=== PATIENT | male | born 1940 | race Two or more races ===

== ENCOUNTER 2025-07-04 08:32 | Inpatient (IN) | payer MEDICARE, MEDICAID ==
[~2025-07-04] VITALS: Ht 175.3 cm; Wt 80.4 kg
[2025-07-04 08:50] VITALS: PULSE 73; RESP 13; O2SAT 96
--- NOTE | 2025-07-04 09:10 | ED.PDOC ---
History of Present Illness HPI Comments 84 year old male with PMHx Dementia, HTN, HLD, CHF, Epilepsy, presents to the ED via EMS with a chief complaint of back pain onset 3 weeks. Patient states he slipped out of his wheelchair about 3 weeks ago, landing on his back, since then has been experiencing mid back pain. Patient has been taking [place] for pain with no improvement of symptoms. Denies LOC, head injury, numbness/tingling, dizziness, headache, nausea, vomiting, diarrhea, chest pain, shortness of breath. No other symptoms or modifying factors present at this time. Chief Complaint: Back Pain Time Seen by MD: 09:00 Reviewed Notes: Medications, Allergies Allergies: Coded Allergies: NO KNOWN ALLERGIES (Unverified , 07/04/25) Information Source: Patient, Emergency Med Personnel Mode of Arrival: EMS Severity: Moderate Timing: Weeks Duration: Since onset Prehospital treatment: Pain Meds Past Medical History PAST MEDICAL HISTORY: CHF, Dementia, High Lipids, HTN, Seizures Surgical History: Denies all surgeries Family History Family History: Reviewed,noncontributory to illness, No family hx of Cancer, No family hx of DM, No family hx of Heart franki, No family hx of HTN, No family hx ofKidney franki, No family hx of Liver franki, No family hx of Lung franki, No family hx of Stroke Social History Smoker: Non-Smoker Alcohol: Denies ETOH Use Drugs: Denies Drug Use Lives In: Assisted Care Constitutional: denies: chills, diaphoresis, fatigue, fever, malaise, sweats, weakness, others EENTM: denies: blurred vision, double vision, ear bleeding, ear discharge, ear drainage, ear pain, ear ringing, eye pain, eye redness, hearing loss, mouth pain, mouth swelling, nasal discharge, nose bleeding, nose congestion, nose pain, photophobia, tearing, throat pain, throat swelling, voice changes, others Respiratory: denies: cough, hemoptysis, orthopnea, SOB at rest, shortness of breath, SOB with excertion, stridor, wheezing, others Cardiovascular: denies: chest pain, dizzy spells, diaphoresis, Dyspnea on exertion, edema, irregular heart beat, left arm pain, lightheadedness, palpitations, PND, syncope, others Gastrointestinal: denies: abdomen distended, abdominal pain, blood streaked bowels, constipated, diarrhea, dysphagia, difficulty swallowing, hematemesis, melena, nausea, poor appetite, poor fluid intake, rectal bleeding, rectal pain, vomiting, others Genitourinary: denies: burning, dysuria, flank pain, frequency, hematuria, incontinence, penile discharge, penile sore, pain, testicle pain, testicle swelling, urgency, others Neurological: denies: dizziness, fainting, headache, left sided numbness, left sided weakness, numbness, paresthesia, pre-existing deficit, right sided numbness, right sided weakness, seizure, speech problems, tingling, tremors, weakness, others Musculoskeletal: reports: back pain; denies: gout, joint pain, joint swelling, muscle pain, muscle stiffness, neck pain, others Integumetry: denies: bruises, change in color, change in hair/nails, dryness, laceration, lesions, lumps, rash, wounds, others Allergic/Immunocompromised: denies: Difficulty Healing, Frequent Infections, Hives, Itching, others Hematologic/Lymphatic: denies: anemia, blood clots, easy bleeding, easy bruising, swollen glands, others Endocrine: denies: excessive hunger, excessive sweating, excessive thirst, excessive urination, flushing, intolerance to cold, intolerance to heat, unexplained weight gain, unexplained weight loss, others Psychiatric: denies: anxiety, bipolar disorder, depression, hopeless, panic disorder, schizophrenia, sleepless, suicidal, others All Other Systems: Reviewed and Negative Physical Exam General Appearance: Normal HEENT: Normal ENT Inspection, Pharynx Normal, TMs Normal Neck: Full Range of Motion, Non-Tender, Normal, Normal Inspection Respiratory: Chest Non-Tender, Lungs Clear, No Accessory Muscle Use, No Re spiratory Distress, Normal Breath Sounds Cardiovascular: No Edema, No JVD, No Murmur, No Gallop, Normal Peripheral Pulses, Regular Rate/Rhythm Breast Exam: Deferred Gastrointestinal: No Organomegaly, Non Tender, No Pulsatile Mass, Normal Bowel Sounds, Soft Genitalia: Deferred Pelvic: Deferred Rectal: Deferred Extremities: No calf tenderness, Normal capillary refill, Normal inspection, Normal range of motion, Non-tender, No pedal edema Musculoskeletal : Apperance: Normal Neurologic: Alert, iron cutter II-XII nml as Tested, No Motor Deficits, Normal Affect, Normal Mood, No Sensory Deficits Cerebellar Function: Normal Reflexes: Normal Skin: Dry, Normal Color, Warm Lymphatic: No Adenopathy Was a procedure done? Was a procedure done?: No Differential Dx Considerations may include: Lumbar strain, lumbar or thoracic fracture X-Ray, Labs, Meds, VS Vital Signs Date Time Temp Pulse Resp B/P (MAP) Pulse Ox O2 Delivery O2 Flow Rate FiO2 07/04/25 10:52 78 14 93/42 07/04/25 10:00 98.7 76 10 93/42 (59) 94 98.7 07/04/25 09:15 76 10 93/42 07/04/25 08:50 73 13 96 Nasal Cannula* 2 28 07/04/25 08:50 98.7 73 13 104/40 (61) 96 98.7 07/04/25 08:35 97.8 76 19 123/67 97 97.8 Lab Test 07/04/25 09:20 Range/Units White Blood Count 5.7 4.4-10.8 10^3/uL Red Blood Count 3.93 L 4.5-5.90 10^6/uL Hemoglobin 12.6 L 13.5-17.5 g/dL Hematocrit 38.1 L 41.0-53.0 % Mean Corpuscular Volume 97.1 80.0-100.0 fL Mean Corpuscular Hemoglobin 32.0 28.0-32.0 pg Mean Corpuscular Hemoglobin Concent 33.0 32.0-36.0 g/dL Red Cell Distribution Width 14.8 H 11.8-14.3 % Platelet Count 161 140-450 10^3/uL Mean Platelet Volume 7.0 6.9-10.8 fL Neutrophils (%) (Auto) 76.4 37.0-80.0 % Lymphocytes (%) (Auto) 13.6 10.0-50.0 % Monocytes (%) (Auto) 8.1 0.0-12.0 % Eosinophils (%) (Auto) 1.4 0.0-7.0 % Basophils (%) (Auto) 0.5 0.0-2.0 % Neutrophils # (Auto) 4.4 1.6-8.6 10 ^3/uL Lymphocytes # (Auto) 0.8 0.4-5.4 10 ^3/uL Monocytes # (Auto) 0.5 0-1.3 10 ^3/uL Eosinophils # (Auto) 0.1 0-0.8 10 ^3/uL Basophils # (Auto) 0 0-0.2 10 ^3/uL Nucleated Red Blood Cells 0.0 % Sodium Level 142 136-145 mmol/L Potassium Level 4.8 3.5-5.1 mmol/L Chloride Level 106 98-107 mmol/L Carbon Dioxide Level 28 20-31 mmol/L Anion Gap 8 5-15 Blood Urea Nitrogen 14 9-23 mg/dL Creatinine 0.92 0.700-1.30 mg/dL Glomerular Filtration Rate Calc 82 >90 mL/min BUN/Creatinine Ratio 15.2 10.0-20.0 Serum Glucose 96 74-106 mg/dL Calcium Level 9.1 8.7-10.4 mg/dL Current Medications Medications (Trade) Dose Ordered Sig/Eliezer Route Start Time Stop Time Status Last Admin Hydromorphone HCl (Dilaudid Injection) 1 mg ONCE ONCE IV 07/04/25 09:15 07/04/25 09:21 DC 07/04/25 09:15 Ondansetron HCl (Zofran) 4 mg ONCE ONCE IV 07/04/25 09:15 07/04/25 09:21 DC 07/04/25 09:15 [place] [id number] Ph: [phone] DIAGNOSTIC IMAGING Diagnostic Imaging Report : [id number] Signed PATIENT: AYANA MARTINEZ ACCT: [id number] UNIT: [id number] : 1940 LOC: ER ROOM / BED: / AGE / SEX: 84 / M ADM STATUS: REG ER SERVICE 6 ORDERING PHYSICIAN: SAMUEL VALLE MD PROCEDURE(s): LUMB2 - LUMBAR SPINE 3 VIEW REASON: back pain ORDER NUMBER(s): [id number], ACCESSION NUMBER(s): [id number] INDICATION: back pain TECHNIQUE: Frontal and lateral views of the lumbar spine were obtained. COMPARISON: XY SPINE THORACIC 2VIEW on DOS: 07/04/25, CT LS SPINE WO CONTRAST on DOS: 05/19/24 FINDINGS: Chronic compression fracture of the T12 vertebral body. There are no fractures or subluxations. Vertebral body heights and disc spaces are well maintained. Paravertebral soft tissues are unremarkable. IMPRESSION: Chronic compression fracture of the T12 vertebral body. ATED BY: EDDIE VERMA MD DICTATED DATE/TIME: 07/04/251003 SIGNED BY: EDDIE VERMA MD SIGNED DATE/TIME: 07/04/251003 CC: [place] [id number] Ph: [phone] DIAGNOSTIC IMAGING Diagnostic Imaging Report : [id number] Signed PATIENT: AYANA MARTINEZ ACCT: [id number] UNIT: [id number] : 1940 LOC: ER ROOM / BED: / AGE / SEX: 84 / M ADM STATUS: REG ER SERVICE 6 ORDERING PHYSICIAN: SAMUEL VALLE MD PROCEDURE(s): THOSP - SPINE THORACIC 2VIEW REASON: back pain ORDER NUMBER(s): [id number], ACCESSION NUMBER(s): [id number] INDICATION: back pain COMPARISON: XY LUMBAR SPINE 3 VIEW on DOS: 07/04/25, CT LS SPINE WO CONTRAST on DOS: 05/19/24 TECHNIQUE: 3 views of the thoracic spine were obtained. FINDINGS: The thoracic vertebral alignment is normal. Chronic compression fracture T10-T11 vertebral bodies No acute fracture, vertebral compression deformity or aggressive osseous lesions. The imaged thorax and abdomen are grossly unremarkable. IMPRESSION: No acute fracture. ATED BY: EDDIE VERMA MD DICTATED DATE/TIME: 07/04/251004 SIGNED BY: EDDIE VERMA MD SIGNED DATE/TIME: 07/04/251004 CC: Time of 1ST Reevaluation: 09:30 Reevaluation 1ST: Unchanged Patient Education/Counseling: Diagnosis, Treatment, Prognosis Family Education/Counseling: No Family Present SEPSIS Sepsis Screen Date sepsis recognized/suspect: Jul 04, 2025 Time Sepsis recognized/suspect: 0837 Recent Procedure: No On Antibiotic Therapy: No Respiratory Rate >20: No Heart Rate >90: No Temp<36 C (96.8 F) or >38.3 C: No SBP <90 or MAP <65 mmHG: No New Acute Mental Status Change: No Is the patient on CPAP, BIPAP,: No Physician Orders Regular Diet (07/04/25 Breakfast) Spine Thoracic 2view (07/04/25 09:07) Urinalysis (07/04/25 09:07) Lumbar Spine 3 View (07/04/25 09:07) Vital Signs Date Time Temp Pulse Resp B/P (MAP) Pulse Ox O2 Delivery O2 Flow Rate FiO2 07/04/25 10:52 78 14 93/42 07/04/25 10:00 98.7 76 10 93/42 (59) 94 98.7 07/04/25 09:15 76 10 93/42 07/04/25 08:50 73 13 96 Nasal Cannula* 2 28 07/04/25 08:50 98.7 73 13 104/40 (61) 96 98.7 07/04/25 08:35 97.8 76 19 123/67 97 97.8 Laboratory Tests Test 07/04/25 09:20 White Blood Count 5.7 10^3/uL (4.4-10.8) Medications Medications Dose Ordered Sig/Eliezer Route Start Time Stop Time Status Last Admin Dose Admin Hydromorphone HCl 1 mg ONCE ONCE IV 07/04/25 09:15 07/04/25 09:21 DC 07/04/25 09:15 Ondansetron HCl 4 mg ONCE ONCE IV 07/04/25 09:15 07/04/25 09:21 DC 07/04/25 09:15 Departure 1 Departure Time of Disposition: 11:54 (Patient with intractable lower back pain lumbar fracture. We will admit patient for further workup and expert consultation) Impression: Primary Impression: Intractable neuropathic pain of lumbosacral origin Additional Impression: Lumbar compression fracture Disposition: ADMITTED INPATIENT Admit to: Med Surg Condition: Serious Critical Care Note Critical Care Time?: Yes Critical care comment: Intractable back pain Authorized and Performed by: Samuel Valle MD Total critical care time: Approximately 36 minutes Due to a high probability of clinically significant, life threatening deterioration, the patient required my highest level of preparedness to inter vene emergently and I personally spent this critical care time directly and personally managing the patient. This critical care time included obtaining a history; examining the patient; pulse oximetry; ordering and review of studies; arranging urgent treatment with development of a management plan; evaluation of patient's response to treatment; frequent reassessment; and, discussions with other providers. This critical care time was performed to assess and manage the high probability of imminent, life-threatening deterioration that could result in multi-organ failure. It was exclusive of separately billable procedures and treating other patients and teaching time. Please see my other sections and the rest of the note for further information on patient assessment and treatment. Stability Stability form required: No Heart Score Heart Score: Heart Score Response (Comments) Value History N/A 0 EKG N/A 0 Age N/A 0 Risk Factors N/A 0 Troponin N/A 0 Total 0 I personally scribed for SAMUEL VALLE MD ([email or web address]) on 07/04/25 at 09:10. Margo ctronically submitted by Maria Luz Sheridan ([email or web address]). I personally scribed for SAMUEL VALLE MD ([email or web address]) on 07/04/25 at 10:12. Electronically submitted by Maria Luz Sheridan ([email or web address]). SAMUEL VALEL MD Jul 04, 2025 09:10
[2025-07-04] MEDS: HYDROmorphone HCL 2 MG/ML VL/or syr IV ONE (09:15)
[2025-07-04] MEDS: ONDANSETRON HCL 4 MG/2 ML VIAL IV ONE (09:15)
[2025-07-04 09:46] LABS: Hematocrit 38.1 % (41.0-53.0); Hemoglobin 12.6 g/dL (13.5-17.5); Mean Corpuscular Hemoglobin 32.0 pg (28.0-32.0); Mean Corpuscular Volume 97.1 fL (80.0-100.0); Nucleated Red Blood Cells % 0.0 %
[2025-07-04 09:51] LABS: Chloride 106 mmol/L (98-107); Potassium 4.8 mmol/L (3.5-5.1); Sodium 142 mmol/L (136-145)
[2025-07-04 09:52] LABS: Anion Gap 8 (5-15); Carbon Dioxide 28 mmol/L (20-31)
[2025-07-04 09:53] LABS: Calcium 9.1 mg/dL (8.7-10.4)
[2025-07-04 09:57] LABS: BUN/Creatinine Ratio 15.2 (10.0-20.0); Blood Urea Nitrogen 14 mg/dL (9-23); Glucose 96 mg/dL (74-106)
--- NOTE | 2025-07-04 10:06 | DVH ---
INDICATION: back pain TECHNIQUE: Frontal and lateral views of the lumbar spine were obtained. COMPARISON: XY SPINE THORACIC 2VIEW on DOS: 07/04/25, CT LS SPINE WO CONTRAST on DOS: 05/19/24 FINDINGS: Chronic compression fracture of the T12 vertebral body. There are no fractures or subluxati ons. Vertebral body heights and disc spaces are well maintained. Paravertebral soft tissues are unrem arkable. IMPRESSION: Chronic compression fracture of the T12 vertebral body.
--- NOTE | 2025-07-04 10:08 | DVH ---
INDICATION: back pain COMPARISON: XY LUMBAR SPINE 3 VIEW on DOS: 07/04/25, CT LS SPINE WO CONTRAST on DOS: 05/19/24 TECHNIQUE: 3 views of the thoracic spine were obtained. FINDINGS: The thoracic vertebral alignment is normal. Chronic compression fracture T10-T11 vertebral bodies No acute fracture, vertebral compression deformity or aggressive osseous lesions. The imaged thorax and abdomen are grossly unremarkable. IMPRESSION: No acute fracture.
[2025-07-04 14:22] LABS: Urine Protein, UAD TRACE (Negative)
--- NOTE | 2025-07-04 15:09 | DVHHP2 ---
History of Present Illness HPI 84 year old male with PMHx Dementia, HTN, HLD, CHF, Epilepsy, presents to the ED via EMS with a chief complaint of back pain onset 3 weeks. Patient states he slipped out of his wheelchair about 3 weeks ago, landing on his back, since then has been experiencing mid back pain. Patient has been taking [place] for pain with no improvement of symptoms. Denies LOC, head injury, numbness/tingling, dizziness, headache, nausea, vomiting, diarrhea, chest pain, shortness of breath. No other symptoms or modifying factors present at this time. Review of Systems Constitutional: No symptom reported Eyes: No symptom reported Pulmonary/Respiratory: No symptom reported Cardiovascular: No symptom reported Gastrointestinal: No symptom reported H&P Exam Vital Signs Vital Signs Date Time Temp Pulse Resp B/P (MAP) Pulse Ox O2 Delivery O2 Flow Rate FiO2 07/04/25 14:00 98.5 70 10 134/49 (77) 96 98.5 07/04/25 08:50 Nasal Cannula* 2 28 General Appeara: Well developed, Well nourished Pulmonary/Respiratory: Normal inspection, Normal breath sounds SEPSIS Sepsis Screen Date sepsis recognized/suspect: Jul 04, 2025 Time Sepsis recognized/suspect: 0850 Recent Procedure: No On Antibiotic Therapy: No Respiratory Rate >20: No Heart Rate >90: No Temp<36 C (96.8 F) or >38.3 C: No SBP <90 or MAP <65 mmHG: No New Acute Mental Status Change: No Is the patient on CPAP, BIPAP,: No Physician Orders Regular Diet (07/04/25 Breakfast) Spine Thoracic 2view (07/04/25 09:07) Lumbar Spine 3 View (07/04/25 09:07) Vital Signs Date Time Temp Pulse Resp B/P (MAP) Pulse Ox O2 Delivery O2 Flow Rate FiO2 07/04/25 14:00 98.5 70 10 134/49 (77) 96 98.5 07/04/25 12:00 76 07/04/25 12:00 98.5 73 12 134/49 (77) 94 98.5 07/04/25 10:52 78 14 93/42 07/04/25 10:00 98.7 76 10 93/42 (59) 94 98.7 07/04/25 09:15 76 10 93/42 07/04/25 08:50 73 13 96 Nasal Cannula* 2 28 07/04/25 08:50 98.7 73 13 104/40 (61) 96 98.7 07/04/25 08:35 97.8 76 19 123/67 97 97.8 Laboratory Tests Test 07/04/25 09:20 White Blood Count 5.7 10^3/uL (4.4-10.8) Medications Medications Dose Ordered Sig/Eliezer Route Start Time Stop Time Status Last Admin Dose Admin Hydromorphone HCl 1 mg ONCE ONCE IV 07/04/25 09:15 07/04/25 09:21 DC 07/04/25 09:15 1 MG Ondansetron HCl 4 mg ONCE ONCE IV 07/04/25 09:15 07/04/25 09:21 DC 07/04/25 09:15 4 MG Labs/Xrays Labs Test 07/04/25 13:08 07/04/25 09:20 Range/Units Urine Color Yellow Yellow Urine Clarity Clear Clear Urine pH 6.0 5.0-9.0 Urine Specific [place] 1.028 1.001-1.035 Urine Protein Trace H Negative Urine Ketones Negative Negative Urine Blood Negative Negative /uL Urine Nitrite Negative Negative Urine Bilirubin Negative Negative Urine Urobilinogen Normal Negative mg/dL Urine Leukocyte Esterase Negative Negative /uL Urine RBC 34 0 - 3 /hpf Urine Microscopic WBC 1 0-3 /HPF Urine Squamous Epithelial Cells Few <5 /hpf Urine Calcium Oxalate Crystals Few None Seen Urine Bacteria None seen None Seen /hpf Urine Mucus Few None Seen Urine Glucose Normal Normal mg/dL White Blood Count 5.7 4.4-10.8 10^3/uL Red Blood Count 3.93 L 4.5-5.90 10^6/uL Hemoglobin 12.6 L 13.5-17.5 g/dL Hematocrit 38.1 L 41.0-53.0 % Mean Corpuscular Volume 97.1 80.0-100.0 fL Mean Corpuscular Hemoglobin 32.0 28.0-32.0 pg Mean Corpuscular Hemoglobin Concent 33.0 32.0-36.0 g/dL Red Cell Distribution Width 14.8 H 11.8-14.3 % Platelet Count 161 140-450 10^3/uL Mean Platelet Volume 7.0 6.9-10.8 fL Neutrophils (%) (Auto) 76.4 37.0-80.0 % Lymphocytes (%) (Auto) 13.6 10.0-50.0 % Monocytes (%) (Auto) 8.1 0.0-12.0 % Eosinophils (%) (Auto) 1.4 0.0-7.0 % Basophils (%) (Auto) 0.5 0.0-2.0 % Neutrophils # (Auto) 4.4 1.6-8.6 10 ^3/uL Lymphocytes # (Auto) 0.8 0.4-5.4 10 ^3/uL Monocytes # (Auto) 0.5 0-1.3 10 ^3/uL Eosinophils # (Auto) 0.1 0-0.8 10 ^3/uL Basophils # (Auto) 0 0-0.2 10 ^3/uL Nucleated Red Blood Cells 0.0 % Sodium Level 142 136-145 mmol/L Potassium Level 4.8 3.5-5.1 mmol/L Chloride Level 106 98-107 mmol/L Carbon Dioxide Level 28 20-31 mmol/L Anion Gap 8 5-15 Blood Urea Nitrogen 14 9-23 mg/dL Creatinine 0.92 0.700-1.30 mg/dL Glomerular Filtration Rate Calc 82 >90 mL/min BUN/Creatinine Ratio 15.2 10.0-20.0 Serum Glucose 96 74-106 mg/dL Calcium Level 9.1 8.7-10.4 mg/dL Assessment/Plan Primary Diagnosis 84 year old male with PMHx Dementia, HTN, HLD, CHF, Epilepsy, presents to the ED via EMS with a chief complaint of back pain onset 3 weeks. Patient states he slipped out of his wheelchair about 3 weeks ago, landing on his back, since then has been experiencing mid back pain. Patient has been taking [place] for pain with no improvement of symptoms. Denies LOC, head injury, numbness/tingling, dizziness, headache, nausea, vomiting, diarrhea, chest pain, shortness of breath. No other symptoms or modifying factors present at this time. acute back pain difficulty walking weakness HTN HLD CHF hx of Epilepsy HTN hx of dementia admitted to med/surg consult to spin surgery PT/OT as appropriate pain management time: >45 minutes in the coordination of care Plan discussed with: Patient JANEE SCHULTE Jul 04, 2025 15:09
[2025-07-04] MEDS ORDERED: MORPHINE SULFATE INJ 2 MG/ml SYRG IV PRN (15:15)
[2025-07-04] MEDS ORDERED: NITROGLYCERIN 0.4 MG SL TAB SL PRN (15:15)
[2025-07-04] MEDS ORDERED: ACETAMINOPHEN 325 MG TAB PO PRN (15:15)
[2025-07-04 15:52] VITALS: BP 125/74; PULSE 78; RESP 16; TEMP 97.6; O2SAT 100
[2025-07-04 16:30] VITALS: BP 125/74; PULSE 78; RESP 16; TEMP 97.6; O2SAT 100
[2025-07-04] MEDS: HYDROcodone-ACET 5/325MG TAB PO PRN (18:14)
[2025-07-04 20:00] VITALS: PULSE 70; RESP 15; O2SAT 99
[2025-07-04 21:00] VITALS: BP 92/46; PULSE 70; RESP 15; TEMP 97.8; O2SAT 99
[2025-07-04 23:00] VITALS: BP 129/77; PULSE 69; RESP 17; TEMP 97.1; O2SAT 100
[2025-07-05] VITALS (8 sets, daily range): BP systolic 102–122; BP diastolic 56–76; PULSE 70–87; RESP 16–18; TEMP 97.3–98.5; O2SAT 96–100
[2025-07-05 07:12] LABS: Hematocrit 37.0 % (41.0-53.0); Hemoglobin 12.2 g/dL (13.5-17.5); Mean Corpuscular Hemoglobin 31.5 pg (28.0-32.0); Mean Corpuscular Volume 95.6 fL (80.0-100.0); Nucleated Red Blood Cells % 0.1 %
[2025-07-05 07:37] LABS: Alanine Aminotransferase 11 U/L (7-40); Anion Gap 7 (5-15); BUN/Creatinine Ratio 17.2 (10.0-20.0); Blood Urea Nitrogen 16 mg/dL (9-23); Calcium 9.1 mg/dL (8.7-10.4); Carbon Dioxide 31 mmol/L (20-31); Chloride 104 mmol/L (98-107); Glucose 87 mg/dL (74-106); Potassium 4.6 mmol/L (3.5-5.1); Sodium 142 mmol/L (136-145)
[2025-07-05 07:38] LABS: Total Protein 5.8 g/dL (5.7-8.2)
[2025-07-05 07:39] LABS: Albumin 3.4 g/dL (3.2-4.8)
[2025-07-05 07:40] LABS: Bilirubin, Total 0.7 mg/dL (0.2-1.0)
[2025-07-05 07:41] LABS: Alkaline Phosphatase 128 U/L (46-116)
[2025-07-05] MEDS: ENOXAPARIN SOD 40 MG/0.4 ML SYRINGE SC SCH (08:18)
[2025-07-05] MEDS: MORPHINE SULFATE INJ 2 MG/ml SYRG IV PRN (08:18)
[2025-07-05] MEDS: KETOROLAC TROMETH 30 MG/ML 1ML VIAL IV PRN (17:03)
[2025-07-05] MEDS: LIDOCAINE 5% TOPICAL PATCH TOP SCH (20:37)
[2025-07-06] VITALS (7 sets, daily range): BP systolic 102–127; BP diastolic 53–83; PULSE 68–72; RESP 16–18; TEMP 97.4–98.3; O2SAT 95–100
[2025-07-06] MEDS: LIDOCAINE 5% TOPICAL PATCH TOP SCH (09:02)
[2025-07-06] MEDS ORDERED: LIDOCAINE 5% TOPICAL PATCH TOP SCH (10:00)
--- NOTE | 2025-07-06 15:06 | DVHPN2 ---
Progress Note Date Seen: Jul 05, 2025 Medical Necessity Reason Pt with a Central, PICC or Fol: No Subjective Review of Systems: HEENT:Normal Objective vital signs Vital Sign Date Time Temp Pulse Resp B/P (MAP) Pulse Ox O2 Delivery O2 Flow Rate FiO2 07/06/25 13:00 97.8 69 16 125/71 (89) 100 97.8 07/06/25 07:44 Nasal Cannula* 2 28 Total Intake and Output 07/05/25 07/05/25 07/06/25 15:00 23:00 07:00 Intake Total 820 ml 900 ml Output Total 300 ml Balance 520 ml 900 ml medications Current Medications Medications Dose Ordered Sig/Eliezer Route Start Time Stop Time Status Last Admin Dose Admin Acetaminophen/ Hydrocodone Bitart 1 tab Q4HP PRN PO 07/04/25 15:15 07/04/25 18:14 1 TAB Enoxaparin Sodium 40 mg DAILY SC 07/05/25 10:00 07/06/25 09:01 40 MG Acetaminophen 650 mg Q6HP PRN PO 07/04/25 15:15 Morphine Sulfate 2 mg Q4HPRN PRN IV 07/04/25 15:15 07/05/25 14:16 2 MG Nitroglycerin 0.4 mg Q5MINP PRN SL 07/04/25 15:15 Morphine Sulfate 2 mg Q30M PRN IV 07/04/25 15:15 Ketorolac Tromethamine 30 mg Q6HPRN PRN IV 07/05/25 15:30 07/10/25 15:29 07/05/25 17:03 30 MG Lidocaine 1 patch DAILY TOP 07/06/25 10:00 07/06/25 09:02 1 PATCH Lidocaine 1 patch DAILY TOP 07/05/25 20:00 07/05/25 20:37 1 PATCH Examination: GENERAL:Normal laboratory and microbiology Laboratory Tests 07/05/25 06:00 Test 07/05/25 06:00 Range/Units Serum Glucose 87 74-106 mg/dL Microbiology Date/Time Source Procedure Growth Status 07/04/25 18:43 Nose MRSA Screen - Final Complete Labs and/or images reviewed: Labs reviewed by me, Image(s) reviewed by me Problem List/Assessment/Plan Problem List/Assessment/Plan 84 year old male with PMHx Dementia, HTN, HLD, CHF, Epilepsy, presents to the ED via EMS with a chief complaint of back pain onset 3 weeks. Patient states he slipped out of his wheelchair about 3 weeks ago, landing on his back, since then has been experiencing mid back pain. Patient has been taking [place] for pain with no improvement of symptoms. Denies LOC, head injury, numbness/tingling, dizziness, headache, nausea, vomiting, diarrhea, chest pain, shortness of breath. No other symptoms or modifying factors present at this time. acute back pain difficulty walking weakness HTN HLD CHF hx of Epilepsy HTN hx of dementia admitted to med/surg consult to spin surgery PT/OT as appropriate pain management 07/05/2025 consult Spine surgery. MRI if needed time: >45 minutes in the coordination of care Plan discussed with: Patient My Orders My Orders Orders - JANEE SCHULTE DO Procedure Category Date Status Time * Surgical Consult CONS 07/05/25 Transmitted Ketorolac Injection PHA 07/05/25 In Process (Toradol Injection) 15:30 Lidocaine 5% Topical PHA 07/06/25 In Process Patch (Lidoderm 5% 10:00 Lidocaine 5% Topical PHA 07/05/25 In Process Patch (Lidoderm 5% 20:00 Pt Request For Service PT 07/06/25 Logged 11:51 Lumbar Spine Wo MRI 07/06/25 Logged Contrast 14:57 JANEE SCHULTE DO Jul 06, 2025 15:06
--- NOTE | 2025-07-06 15:07 | DVHPN2 ---
Progress Note Date Seen: Jul 06, 2025 Medical Necessity Reason Pt with a Central, PICC or Fol: No Objective vital signs Vital Sign Date Time Temp Pulse Resp B/P (MAP) Pulse Ox O2 Delivery O2 Flow Rate FiO2 07/06/25 13:00 97.8 69 16 125/71 (89) 100 97.8 07/06/25 07:44 Nasal Cannula* 2 28 Total Intake and Output 07/05/25 07/05/25 07/06/25 15:00 23:00 07:00 Intake Total 820 ml 900 ml Output Total 300 ml Balance 520 ml 900 ml medications Current Medications Medications Dose Ordered Sig/Eliezer Route Start Time Stop Time Status Last Admin Dose Admin Acetaminophen/ Hydrocodone Bitart 1 tab Q4HP PRN PO 07/04/25 15:15 07/04/25 18:14 1 TAB Enoxaparin Sodium 40 mg DAILY SC 07/05/25 10:00 07/06/25 09:01 40 MG Acetaminophen 650 mg Q6HP PRN PO 07/04/25 15:15 Morphine Sulfate 2 mg Q4HPRN PRN IV 07/04/25 15:15 07/05/25 14:16 2 MG Nitroglycerin 0.4 mg Q5MINP PRN SL 07/04/25 15:15 Morphine Sulfate 2 mg Q30M PRN IV 07/04/25 15:15 Ketorolac Tromethamine 30 mg Q6HPRN PRN IV 07/05/25 15:30 07/10/25 15:29 07/05/25 17:03 30 MG Lidocaine 1 patch DAILY TOP 07/06/25 10:00 07/06/25 09:02 1 PATCH Lidocaine 1 patch DAILY TOP 07/05/25 20:00 07/05/25 20:37 1 PATCH Examination: GENERAL:Normal, HEENT:Normal, NECK:Normal, LUNGS:Normal laboratory and microbiology Laboratory Tests 07/05/25 06:00 Test 07/05/25 06:00 Range/Units Serum Glucose 87 74-106 mg/dL Microbiology Date/Time Source Procedure Growth Status 07/04/25 18:43 Nose MRSA Screen - Final Complete Labs and/or images reviewed: Labs reviewed by me, Image(s) reviewed by me Problem List/Assessment/Plan Problem List/Assessment/Plan 84 year old male with PMHx Dementia, HTN, HLD, CHF, Epilepsy, presents to the ED via EMS with a chief complaint of back pain onset 3 weeks. Patient states he slipped out of his wheelchair about 3 weeks ago, landing on his back, since then has been experiencing mid back pain. Patient has been taking [place] for pain with no improvement of symptoms. Denies LOC, head injury, numbness/tingling, dizziness, headache, nausea, vomiting, diarrhea, chest pain, shortness of breath. No other symptoms or modifying factors present at this time. acute back pain difficulty walking weakness HTN HLD CHF hx of Epilepsy HTN hx of dementia admitted to med/surg consult to spin surgery PT/OT as appropriate pain management 07/05/2025 consult Spine surgery. MRI if needed 07/06/2025: pending MRI and evaluation by surgery request PT/OT time: >45 minutes in the coordination of care Plan discussed with: Patient My Orders My Orders Orders - JANEE SCHULTE DO Procedure Category Date Status Time * Surgical Consult CONS 07/05/25 Transmitted Ketorolac Injection PHA 07/05/25 In Process (Toradol Injection) 15:30 Lidocaine 5% Topical PHA 07/06/25 In Process Patch (Lidoderm 5% 10:00 Lidocaine 5% Topical PHA 07/05/25 In Process Patch (Lidoderm 5% 20:00 Pt Request For Service PT 07/06/25 Logged 11:51 Lumbar Spine Wo MRI 07/06/25 Logged Contrast 14:57 JANEE SCHULTE DO Jul 06, 2025 15:07
[2025-07-07 01:00] VITALS: BP 143/77; PULSE 70; RESP 16; TEMP 97.2; O2SAT 100
[2025-07-07 05:00] VITALS: BP 143/80; PULSE 71; RESP 14; TEMP 97.5; O2SAT 100
--- NOTE | 2025-07-07 07:54 | DVHINCON2 ---
Consultation - Surgical Date Seen: Jul 07, 2025 Referring Physician Referring Physician ttending Doctor: Jarad Infante DO Reason for Consultation Back pain History of Present Illness History of Present Illness 84 year old male with PMHx Dementia, HTN, HLD, CHF, Epilepsy, presents to the ED via EMS with a chief complaint of back pain onset 3 weeks. Patient states he slipped out of his wheelchair about 3 weeks ago, landing on his back, since then has been experiencing mid back pain. Patient has been taking [place] for pain with no improvement of symptoms. Denies LOC, head injury, numbness/tingling, dizziness, headache, nausea, vomiting, diarrhea, chest pain, shortness of breath. No other symptoms or modifying factors present at this time. Past Medical/Surgical History Past Medical/Surgical History Constitutional: No symptom reported Eyes: No symptom reported Pulmonary/Respiratory: No symptom reported Cardiovascular: No symptom reported Gastrointestinal: No symptom reported Family and Social History Family and Social History Noncontributory Allergies and medications Allergies: Coded Allergies: NO KNOWN ALLERGIES (Unverified , 07/04/25) Review of systems Review of Systems: MSK:Abnormal (Back pain) Examination Vital signs Imaging INDICATION: back pain TECHNIQUE: Frontal and lateral views of the lumbar spine were obtained. COMPARISON: XY SPINE THORACIC 2VIEW on DOS: 07/04/25, CT LS SPINE WO CONTRAST on DOS: 05/19/24 FINDINGS: Chronic compression fracture of the T12 vertebral body. There are no fractures or subluxations. Vertebral body heights and disc spaces are well maintained. Paravertebral soft tissues are unremarkable. IMPRESSION: Chronic compression fracture of the T12 vertebral body. CATION: back pain TECHNIQUE: Frontal and lateral views of the lumbar spine were obtained. COMPARISON: XY SPINE THORACIC 2VIEW on DOS: 07/04/25, CT LS SPINE WO CONTRAST on DOS: 05/19/24 FINDINGS: Chronic compression fracture of the T12 vertebral body. There are no fractures or subluxations. Vertebral body heights and disc spaces are well maintained. Paravertebral soft tissues are unremarkable. IMPRESSION: Chronic compression fracture of the T12 vertebral body. Vital Signs Date Time Temp Pulse Resp B/P (MAP) Pulse Ox O2 Delivery O2 Flow Rate FiO2 07/07/25 05:00 97.5 71 14 143/80 (101) 100 97.5 07/06/25 20:00 Nasal Cannula* 2 28 Medications Current Medications Medications (Trade) Dose Ordered Sig/Eliezer Route PRN Reason Start Time Stop Time Status Last Admin Lidocaine (Lidoderm 5% Topical Patch) 1 patch DAILY TOP 07/06/25 10:00 07/05/25 15:42 DC Lidocaine (Lidoderm 5% Topical Patch) 1 patch DAILY TOP 07/06/25 10:00 07/06/25 09:02 Laboratory Labs Test 07/05/25 06:00 07/04/25 13:08 Range/Units White Blood Count 5.0 4.4-10.8 10^3/uL Red Blood Count 3.87 L 4.5-5.90 10^6/uL Hemoglobin 12.2 L 13.5-17.5 g/dL Hematocrit 37.0 L 41.0-53.0 % Mean Corpuscular Volume 95.6 80.0-100.0 fL Mean Corpuscular Hemoglobin 31.5 28.0-32.0 pg Mean Corpuscular Hemoglobin Concent 32.9 32.0-36.0 g/dL Red Cell Distribution Width 14.9 H 11.8-14.3 % Platelet Count 169 140-450 10^3/uL Mean Platelet Volume 7.2 6.9-10.8 fL Neutrophils (%) (Auto) 73.0 37.0-80.0 % Lymphocytes (%) (Auto) 15.3 10.0-50.0 % Monocytes (%) (Auto) 8.5 0.0-12.0 % Eosinophils (%) (Auto) 2.4 0.0-7.0 % Basophils (%) (Auto) 0.8 0.0-2.0 % Neutrophils # (Auto) 3.7 1.6-8.6 10 ^3/uL Lymphocytes # (Auto) 0.8 0.4-5.4 10 ^3/uL Monocytes # (Auto) 0.4 0-1.3 10 ^3/uL Eosinophils # (Auto) 0.1 0-0.8 10 ^3/uL Basophils # (Auto) 0 0-0.2 10 ^3/uL Nucleated Red Blood Cells 0.1 % Sodium Level 142 136-145 mmol/L Potassium Level 4.6 3.5-5.1 mmol/L Chloride Level 104 98-107 mmol/L Carbon Dioxide Level 31 20-31 mmol/L Anion Gap 7 5-15 Blood Urea Nitrogen 16 9-23 mg/dL Creatinine 0.93 0.700-1.30 mg/dL Glomerular Filtration Rate Calc 81 >90 mL/min BUN/Creatinine Ratio 17.2 10.0-20.0 Serum Glucose 87 74-106 mg/dL Calcium Level 9.1 8.7-10.4 mg/dL Total Bilirubin 0.7 0.2-1.0 mg/dL Aspartate Amino Transferase (AST) 17 13-40 U/L Alanine Aminotransferase (ALT) 11 7-40 U/L Alkaline Phosphatase 128 H 46-116 U/L Total Protein 5.8 5.7-8.2 g/dL Albumin 3.4 3.2-4.8 g/dL Urine Color Yellow Yellow Urine Clarity Clear Clear Urine pH 6.0 5.0-9.0 Urine Specific [place] 1.028 1.001-1.035 Urine Protein Trace H Negative Urine Ketones Negative Negative Urine Blood Negative Negative /uL Urine Nitrite Negative Negative Urine Bilirubin Negative Negative Urine Urobilinogen Normal Negative mg/dL Urine Leukocyte Esterase Negative Negative /uL Urine RBC 34 0 - 3 /hpf Urine Microscopic WBC 1 0-3 /HPF Urine Squamous Epithelial Cells Few <5 /hpf Urine Calcium Oxalate Crystals Few None Seen Urine Bacteria None seen None Seen /hpf Urine Mucus Few None Seen Urine Glucose Normal Normal mg/dL Microbiology Date/Time Source Procedure Growth Status 07/04/25 18:43 Nose MRSA Screen - Final Complete Examination: GENERAL:Normal, HEENT:Normal, NECK:Normal, CVS:Normal, ABDOMEN:Normal, MSK:Normal (patient able to move all extremities, left leg is weaked due to hip injury n the past), SKIN:Normal, NEURO:Normal, :Normal Problem List/Assessment/Plan Problems: (1) Thoracic compression fracture Assessment and Plan Chronic compression fracture T10-T11 vertebral bodies Chronic compression fracture of the T12 vertebral body MRI lumbar, 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 Pending CT scan thoracic and lumbar further recommendations once CT are done Further management per admitting team's discretion Physical therapy assessment evaluation for safe discharge Call with questions Thiago Armendariz [facility] Orthopaedic Spine Surgery nurse practitioner For Dr Edith Pittman Office Patient was examined, chart reviewed, labs evaluated, and diagnostic studies and findings analyzed. Case was discussed with Dr. Cresencio Pittman who formulated the plan of care. This medical document was created using an electronic medical record system with [employer] dictation system. Although this document has been carefully reviewed, there might still be some phonetic and typographical errors. These areas are purely typographical due to imperfections of the software programs, and do not reflect any compromise in the patient's medical care. Plan discussed with Plan discussed with: Patient, Other (sharyn ROLAND [phone]) Visit Coding Surgery Date of Service if different f: Jul 07, 2025 Billing Provider: CHARLEE ARMENDARIZ NP Surgery Visit Codes: 27646 - INP CONSULT <55 MIN CHARLEE ARMENDARIZ NP Jul 07, 2025 07:54
[2025-07-07 08:50] VITALS: BP 133/60; PULSE 70; RESP 16; TEMP 97.8; O2SAT 99
[2025-07-07 12:40] VITALS: BP 118/57; PULSE 70; RESP 16; TEMP 98.2; O2SAT 100
[2025-07-07 16:40] VITALS: BP 147/70; PULSE 70; RESP 16; TEMP 98.3; O2SAT 100
[2025-07-07 20:58] VITALS: BP 122/59; PULSE 71; RESP 21; TEMP 97.4; O2SAT 98
[2025-07-08 00:53] VITALS: BP 107/56; PULSE 72; RESP 20; TEMP 97.8; O2SAT 94
[2025-07-08 05:00] VITALS: BP 127/67; PULSE 73; RESP 21; TEMP 97.9; O2SAT 93
[2025-07-08 09:00] VITALS: BP 145/75; PULSE 72; RESP 16; TEMP 97.9; O2SAT 98
--- NOTE | 2025-07-08 12:22 | DVH ---
CT LS SPINE WO CONTRAST, CT THORACIC SPINE WO CONTRAS Indication: lumbar stenosis EXAM DATE: 07/08/2025 11:15 AM COMPARISON: CT LS SPINE WO CONTRAST on DOS: 05/19/24 TECHNIQUE: CT of the thoracic, lumbar without intravenous contrast. RADIATION DOSE: CTDIvol: 24.54 mGy, DLP: 794.47 mGy*cm FINDINGS: Thoracic spine: There are compression deformities of the T8 and T9 vertebral bodies with approximately 50% loss height, No significant retropulsion. The fractures extend to the T8 and T9 anterior vertebral body cortices. There is also fracture of the T7 vertebral body near the inferior endplate with 20% loss height. The remaining thoracic and vertebral body heights are maintained. Yjvg-kv-wzskzdcs Thoracic Multilevel disc space narrowing. Yvqc-ob-uxgbtchn thoracic facet hypertrophic changes. There are tiny bilateral pleural effusions. Cardiomegaly. Atherosclerotic disease. There is a right upper lobe solid nodule measuring 11 mm. Right lower lobe consolidation/atelectasis. 1 cm right hepatic lobe cysts. Lumbar spine: The lumbar vertebral body heights are maintained. There is tylq-fy-kvvtxonw multilevel disc space narrowing. There is 4 mm anterolisthesis L5 on S1. Moderate to advanced lumbar facet hypertrophic changes most pronounced at L4-5 and L5-S1. Moderate to severe neural foraminal stenosis at L5-S1. Moderate bilateral sacroiliac degenerative joint disease. Mild lumbar dextrocurvature. Punctate nonobstructing right renal calculus measuring 3 mm. There is left renal exophytic lesion measuring 10 mm in the mid to upper pole. Left renal cyst measuring 1 cm. Abdominal aortic atherosclerotic disease. Colonic diverticula. IMPRESSION: Acute to subacute T8 and T9 compression fractures with 50% loss height. Recommend MRI thoracic spine to further evaluate. Acute to subacute T7 compression fracture with 20% loss height. This can also be further evaluated MRI thoracic spine. Xisa-yw-ecgcfyqs thoracic degenerative disc disease. Pgff-zg-yvmwtcbg lumbar degenerative disc disease. Left renal exophytic lesion measuring 10 mm. Recommend MRI abdomen with and without contrast to exclude renal mass /neoplasm Right upper lobe pulmonary solid nodule measuring 11 mm. Recommend follow-up per Fleischner society criteria. Right lower lobe consolidation/atelectasis. Cardiomegaly.
[2025-07-08 12:57] VITALS: BP 130/73; PULSE 70; RESP 16; TEMP 98.5; O2SAT 98
--- NOTE | 2025-07-08 14:26 | PRN ---
Misceleneous Note Note Note CT scan findings: RDERING PHYSICIAN: CHARLEE HOWARD NP PROCEDURE(s): LS2CT - LS SPINE WO CONTRAST REASON: lumbar stenosis ORDER NUMBER(s): [id number], ACCESSION NUMBER(s): [id number] CT LS SPINE WO CONTRAST, CT THORACIC SPINE WO CONTRAS Indication: lumbar stenosis EXAM DATE: 07/08/2025 11:15 AM COMPARISON: CT LS SPINE WO CONTRAST on DOS: 05/19/24 TECHNIQUE: CT of the thoracic, lumbar without intravenous contrast. RADIATION DOSE: CTDIvol: 24.54 mGy, DLP: 794.47 mGy*cm FINDINGS: Thoracic spine: There are compression deformities of the T8 and T9 vertebral bodies with approximately 50% loss height, No significant retropulsion. The fractures extend to the T8 and T9 anterior vertebral body cortices. There is also fracture of the T7 vertebral body near the inferior endplate with 20% loss height. The remaining thoracic and vertebral body heights are maintained. Nsxh-me-nlmuqeaw Thoracic Multilevel disc space narrowing. Dzon-um-vflvnohl thoracic facet hypertrophic changes. There are tiny bilateral pleural effusions. Cardiomegaly. Atherosclerotic disease. There is a right upper lobe solid nodule measuring 11 mm. Right lower lobe consolidation/atelectasis. 1 cm right hepatic lobe cysts. Lumbar spine: The lumbar vertebral body heights are maintained. There is pepk-yx-rhmzkftk multilevel disc space narrowing. There is 4 mm anterolisthesis L5 on S1. Moderate to advanced lumbar facet hypertrophic changes most pronounced at L4-5 and L5-S1. Moderate to severe neural foraminal stenosis at L5-S1. Moderate bilateral sacroiliac degenerative joint disease. Mild lumbar dextrocurvature. Punctate nonobstructing right renal calculus measuring 3 mm. There is left renal exophytic lesion measuring 10 mm in the mid to upper pole. Left renal cyst measuring 1 cm. Abdominal aortic atherosclerotic disease. Colonic diverticula. IMPRESSION: Acute to subacute T8 and T9 compression fractures with 50% loss height. Recommend MRI thoracic spine to further evaluate. Acute to subacute T7 compression fracture with 20% loss height. This can also be further evaluated MRI thoracic spine. Tzvs-rh-znerlkmb thoracic degenerative disc disease. Pygz-mp-gzjfnjux lumbar degenerative disc disease. Left renal exophytic lesion measuring 10 mm. Recommend MRI abdomen with and without contrast to exclude renal mass /neoplasm Right upper lobe pulmonary solid nodule measuring 11 mm. Recommend follow-up per Fleischner society criteria. Right lower lobe consolidation/atelectasis. Cardiomegaly. : With these findings we will DC CT Mylogram, the patient will not need spine surgery for the acute/subacute thoracic fractures, conservative treatment further care per admitting team discretion recommend pulmonology and hem/onc consults for the findings found in CT scans Call with questions Thiago Howard [facility] Orthopaedic Spine Surgery nurse practitioner For Dr Edith Pittman Office Patient was examined, chart reviewed, labs evaluated, and diagnostic studies and findings analyzed. Case was discussed with Dr. Cresencio Pittman who formulated the plan of care. This medical document was created using an electronic medical record system with [employer] dictation system. Although this document has been carefully reviewed, there might still be some phonetic and typographical errors. These areas are purely typographical due to imperfections of the software programs, and do not reflect any compromise in the patient's medical care. CHARLEE HOWARD NP Jul 08, 2025 14:26
--- NOTE | 2025-07-08 16:19 | DVHPN2 ---
Progress Note Date Seen: Jul 07, 2025 Medical Necessity Reason Pt with a Central, PICC or Fol: No Objective vital signs Vital Sign Date Time Temp Pulse Resp B/P (MAP) Pulse Ox O2 Delivery O2 Flow Rate FiO2 07/08/25 12:57 98.5 70 16 130/73 (92) 98 98.5 07/08/25 08:00 Nasal Cannula* 2 28 Total Intake and Output 07/07/25 07/07/25 07/08/25 15:00 23:00 07:00 Intake Total 236 ml 240 ml Output Total 290 ml Balance -54 ml 240 ml medications Current Medications Medications Dose Ordered Sig/Eliezer Route Start Time Stop Time Status Last Admin Dose Admin Acetaminophen/ Hydrocodone Bitart 1 tab Q4HP PRN PO 07/04/25 15:15 07/08/25 01:23 1 TAB Enoxaparin Sodium 40 mg DAILY SC 07/05/25 10:00 07/08/25 09:57 40 MG Acetaminophen 650 mg Q6HP PRN PO 07/04/25 15:15 Morphine Sulfate 2 mg Q4HPRN PRN IV 07/04/25 15:15 07/07/25 20:43 2 MG Nitroglycerin 0.4 mg Q5MINP PRN SL 07/04/25 15:15 Morphine Sulfate 2 mg Q30M PRN IV 07/04/25 15:15 Ketorolac Tromethamine 30 mg Q6HPRN PRN IV 07/05/25 15:30 07/10/25 15:29 07/08/25 09:57 30 MG Lidocaine 1 patch DAILY TOP 07/06/25 10:00 07/08/25 09:57 1 PATCH Lidocaine 1 patch DAILY TOP 07/05/25 20:00 07/05/25 20:37 1 PATCH laboratory and microbiology Laboratory Tests 07/05/25 06:00 Test 07/05/25 06:00 Range/Units Serum Glucose 87 74-106 mg/dL Microbiology Date/Time Source Procedure Growth Status 07/04/25 18:43 Nose MRSA Screen - Final Complete Labs and/or images reviewed: Labs reviewed by me, Image(s) reviewed by me Problem List/Assessment/Plan Problem List/Assessment/Plan 84 year old male with PMHx Dementia, HTN, HLD, CHF, Epilepsy, presents to the ED via EMS with a chief complaint of back pain onset 3 weeks. Patient states he slipped out of his wheelchair about 3 weeks ago, landing on his back, since then has been experiencing mid back pain. Patient has been taking [place] for pain with no improvement of symptoms. Denies LOC, head injury, numbness/tingling, dizziness, headache, nausea, vomiting, diarrhea, chest pain, shortness of breath. No other symptoms or modifying factors present at this time. acute back pain difficulty walking weakness HTN HLD CHF hx of Epilepsy HTN hx of dementia admitted to med/surg consult to spin surgery PT/OT as appropriate pain management 07/05/2025 consult Spine surgery. MRI if needed 07/06/2025: pending MRI and evaluation by surgery request PT/OT 07/07/2025: due to new findings on CT, pt needs to discuss with ortho time: >45 minutes in the coordination of care Plan discussed with: Patient JANEE SCHULTE Lillie NOGUEIRA Jul 08, 2025 16:19
--- NOTE | 2025-07-08 16:21 | DVHPN2 ---
Progress Note Date Seen: Jul 08, 2025 Medical Necessity Reason Pt with a Central, PICC or Fol: No Objective vital signs Vital Sign Date Time Temp Pulse Resp B/P (MAP) Pulse Ox O2 Delivery O2 Flow Rate FiO2 07/08/25 12:57 98.5 70 16 130/73 (92) 98 98.5 07/08/25 08:00 Nasal Cannula* 2 28 Total Intake and Output 07/07/25 07/07/25 07/08/25 15:00 23:00 07:00 Intake Total 236 ml 240 ml Output Total 290 ml Balance -54 ml 240 ml medications Current Medications Medications Dose Ordered Sig/Eliezer Route Start Time Stop Time Status Last Admin Dose Admin Acetaminophen/ Hydrocodone Bitart 1 tab Q4HP PRN PO 07/04/25 15:15 07/08/25 01:23 1 TAB Enoxaparin Sodium 40 mg DAILY SC 07/05/25 10:00 07/08/25 09:57 40 MG Acetaminophen 650 mg Q6HP PRN PO 07/04/25 15:15 Morphine Sulfate 2 mg Q4HPRN PRN IV 07/04/25 15:15 07/07/25 20:43 2 MG Nitroglycerin 0.4 mg Q5MINP PRN SL 07/04/25 15:15 Morphine Sulfate 2 mg Q30M PRN IV 07/04/25 15:15 Ketorolac Tromethamine 30 mg Q6HPRN PRN IV 07/05/25 15:30 07/10/25 15:29 07/08/25 09:57 30 MG Lidocaine 1 patch DAILY TOP 07/06/25 10:00 07/08/25 09:57 1 PATCH Lidocaine 1 patch DAILY TOP 07/05/25 20:00 07/05/25 20:37 1 PATCH Examination: GENERAL:Normal, HEENT:Normal, NECK:Normal laboratory and microbiology Laboratory Tests 07/05/25 06:00 Test 07/05/25 06:00 Range/Units Serum Glucose 87 74-106 mg/dL Microbiology Date/Time Source Procedure Growth Status 07/04/25 18:43 Nose MRSA Screen - Final Complete Labs and/or images reviewed: Labs reviewed by me, Image(s) reviewed by me Problem List/Assessment/Plan Problem List/Assessment/Plan 84 year old male with PMHx Dementia, HTN, HLD, CHF, Epilepsy, presents to the ED via EMS with a chief complaint of back pain onset 3 weeks. Patient states he slipped out of his wheelchair about 3 weeks ago, landing on his back, since then has been experiencing mid back pain. Patient has been taking [place] for pain with no improvement of symptoms. Denies LOC, head injury, numbness/tingling, dizziness, headache, nausea, vomiting, diarrhea, chest pain, shortness of breath. No other symptoms or modifying factors present at this time. acute back pain difficulty walking weakness HTN HLD CHF hx of Epilepsy HTN hx of dementia admitted to med/surg consult to spin surgery PT/OT as appropriate pain management 07/05/2025 consult Spine surgery. MRI if needed 07/06/2025: pending MRI and evaluation by surgery request PT/OT 07/07/2025: due to new findings on CT, pt needs to discuss with ortho 07/08/2025: pt needs a myelogram per ortho. son would like to take pt to [place] (where he lives) vs back to [facility] time: >45 minutes in the coordination of care Plan discussed with: Patient, Other (nursing staff) JANEE SCHULTE DO Jul 08, 2025 16:21
[2025-07-08 16:57] VITALS: BP 146/71; PULSE 72; RESP 19; TEMP 98; O2SAT 98
[2025-07-08 21:00] VITALS: BP 130/61; PULSE 71; RESP 18; TEMP 97.7; O2SAT 98
[2025-07-09 01:00] VITALS: BP 124/51; PULSE 70; RESP 17; TEMP 97.9; O2SAT 100
[2025-07-09 05:00] VITALS: BP 117/52; PULSE 53; RESP 17; TEMP 97.4; O2SAT 100
[2025-07-09 08:35] VITALS: BP 130/67; PULSE 73; RESP 17; TEMP 98.1; O2SAT 96
--- NOTE | 2025-07-09 12:02 | DVHPN2 ---
Progress Note Date Seen: Jul 09, 2025 Medical Necessity Reason Pt with a Central, PICC or Fol: No Objective vital signs Vital Sign Date Time Temp Pulse Resp B/P (MAP) Pulse Ox O2 Delivery O2 Flow Rate FiO2 07/09/25 08:35 98.1 73 17 130/67 (88) 96 98.1 07/08/25 19:52 Nasal Cannula* 2 28 Total Intake and Output 07/08/25 07/08/25 07/09/25 15:00 23:00 07:00 Intake Total 1340 ml 240 ml Output Total 450 ml Balance 1340 ml -210 ml medications Current Medications Medications Dose Ordered Sig/Eliezer Route Start Time Stop Time Status Last Admin Dose Admin Acetaminophen/ Hydrocodone Bitart 1 tab Q4HP PRN PO 07/04/25 15:15 07/09/25 10:12 1 TAB Enoxaparin Sodium 40 mg DAILY SC 07/05/25 10:00 07/09/25 10:12 40 MG Acetaminophen 650 mg Q6HP PRN PO 07/04/25 15:15 Morphine Sulfate 2 mg Q4HPRN PRN IV 07/04/25 15:15 07/08/25 20:56 2 MG Nitroglycerin 0.4 mg Q5MINP PRN SL 07/04/25 15:15 Morphine Sulfate 2 mg Q30M PRN IV 07/04/25 15:15 Ketorolac Tromethamine 30 mg Q6HPRN PRN IV 07/05/25 15:30 07/10/25 15:29 07/08/25 09:57 30 MG Lidocaine 1 patch DAILY TOP 07/06/25 10:00 07/09/25 10:12 1 PATCH Lidocaine 1 patch DAILY TOP 07/05/25 20:00 07/05/25 20:37 1 PATCH laboratory and microbiology Laboratory Tests 07/05/25 06:00 Test 07/05/25 06:00 Range/Units Serum Glucose 87 74-106 mg/dL Microbiology Date/Time Source Procedure Growth Status 07/04/25 18:43 Nose MRSA Screen - Final Complete Problem List/Assessment/Plan Problem List/Assessment/Plan 84 year old male with PMHx Dementia, HTN, HLD, CHF, Epilepsy, presents to the ED via EMS with a chief complaint of back pain onset 3 weeks. Patient states he slipped out of his wheelchair about 3 weeks ago, landing on his back, since then has been experiencing mid back pain. Patient has been taking [place] for pain with no improvement of symptoms. Denies LOC, head injury, numbness/tingling, dizziness, headache, nausea, vomiting, diarrhea, chest pain, shortness of breath. No other symptoms or modifying factors present at this time. acute back pain difficulty walking weakness HTN HLD CHF hx of Epilepsy HTN hx of dementia admitted to med/surg consult to spin surgery PT/OT as appropriate pain management 07/05/2025 consult Spine surgery. MRI if needed 07/06/2025: pending MRI and evaluation by surgery request PT/OT 07/07/2025: due to new findings on CT, pt needs to discuss with ortho 07/08/2025: pt needs a myelogram per ortho. son would like to take pt to [place] (where he lives) vs back to [facility] 07/09/2025: pending a myelogrma time: >45 minutes in the coordination of care Plan discussed with: Other (nursing staff) JANEE SCHULTE DO Jul 09, 2025 12:02
[2025-07-09 13:19] VITALS: BP 127/69; PULSE 71; RESP 16; TEMP 98; O2SAT 98
[2025-07-09 16:38] VITALS: BP 136/75; PULSE 70; RESP 16; TEMP 97.6; O2SAT 98
[2025-07-09 21:00] VITALS: BP 96/48; PULSE 75; RESP 20; TEMP 97.1; O2SAT 97
[2025-07-10 01:00] VITALS: BP 126/72; PULSE 71; RESP 19; TEMP 97.9; O2SAT 99
[2025-07-10 05:00] VITALS: BP 135/69; PULSE 70; TEMP 97.9; O2SAT 97
[2025-07-10 08:50] VITALS: BP 109/53; PULSE 67; RESP 16; TEMP 98; O2SAT 95
[2025-07-10 12:55] VITALS: BP 126/62; PULSE 71; RESP 16; TEMP 97.8; O2SAT 98
[2025-07-10] MEDS: DOCUSATE SOD 100 MG CAP PO SCH (14:26)
[2025-07-10] MEDS: MORPHINE SULFATE 4 MG/ML SYR/VIAL IV PRN (16:46)
[2025-07-10 16:48] VITALS: BP 150/75; PULSE 73; RESP 17; TEMP 97.3; O2SAT 98
[2025-07-10 21:00] VITALS: BP 147/66; PULSE 71; RESP 15; TEMP 97.7; O2SAT 99
[2025-07-11] VITALS (7 sets, daily range): BP systolic 126–154; BP diastolic 69–79; PULSE 66–73; RESP 16–20; TEMP 97.4–98.6; O2SAT 98–100
[2025-07-11 10:15] LABS: INR 1.02 (0.9-1.15); Partial Thromboplastin Time 25.9 SEC (24.5-34.5); Prothrombin Time 10.8 sec (9.3-11.8)
[2025-07-12 01:00] VITALS: BP 133/67; PULSE 70; RESP 16; TEMP 97.8; O2SAT 100
[2025-07-12 05:00] VITALS: BP 132/82; PULSE 77; RESP 17; TEMP 98; O2SAT 100
[2025-07-12 08:00] VITALS: PULSE 70; RESP 16; O2SAT 97
[2025-07-12 09:00] VITALS: BP 130/70; PULSE 70; RESP 16; TEMP 98; O2SAT 97
[2025-07-12 12:36] VITALS: BP 126/68; PULSE 73; RESP 16; TEMP 97.5; O2SAT 97
--- NOTE | 2025-07-12 13:05 | DVHPN2 ---
Progress Note Date Seen: Jul 10, 2025 Medical Necessity Reason Pt with a Central, PICC or Fol: No Objective vital signs Vital Sign Date Time Temp Pulse Resp B/P (MAP) Pulse Ox O2 Delivery O2 Flow Rate FiO2 07/12/25 12:36 97.5 73 16 126/68 (87) 97 97.5 07/12/25 08:00 Nasal Cannula* 4 36 Total Intake and Output 07/11/25 07/11/25 07/12/25 15:00 23:00 07:00 Intake Total 750 ml 600 ml Output Total 300 ml 650 ml Balance 450 ml -50 ml medications Current Medications Medications Dose Ordered Sig/Eliezer Route Start Time Stop Time Status Last Admin Dose Admin Acetaminophen/ Hydrocodone Bitart 1 tab Q4HP PRN PO 07/04/25 15:15 07/12/25 10:23 1 TAB Enoxaparin Sodium 40 mg DAILY SC 07/05/25 10:00 07/12/25 10:23 40 MG Acetaminophen 650 mg Q6HP PRN PO 07/04/25 15:15 Morphine Sulfate 2 mg Q4HPRN PRN IV 07/04/25 15:15 07/08/25 20:56 2 MG Nitroglycerin 0.4 mg Q5MINP PRN SL 07/04/25 15:15 Morphine Sulfate 2 mg Q30M PRN IV 07/04/25 15:15 Lidocaine 1 patch DAILY TOP 07/06/25 10:00 07/11/25 11:21 1 PATCH Lidocaine 1 patch DAILY TOP 07/05/25 20:00 07/05/25 20:37 1 PATCH Docusate Sodium 100 mg BID PO 07/10/25 15:00 07/11/25 11:20 100 MG Morphine Sulfate 2 mg Q4HPRN PRN IV 07/10/25 16:45 07/10/25 21:50 2 MG laboratory and microbiology Laboratory Tests 07/05/25 06:00 Test 07/05/25 06:00 Range/Units Serum Glucose 87 74-106 mg/dL Microbiology Date/Time Source Procedure Growth Status 07/04/25 18:43 Nose MRSA Screen - Final Complete Problem List/Assessment/Plan Problem List/Assessment/Plan 84 year old male with PMHx Dementia, HTN, HLD, CHF, Epilepsy, presents to the ED via EMS with a chief complaint of back pain onset 3 weeks. Patient states he slipped out of his wheelchair about 3 weeks ago, landing on his back, since then has been experiencing mid back pain. Patient has been taking [place] for pain with no improvement of symptoms. Denies LOC, head injury, numbness/tingling, dizziness, headache, nausea, vomiting, diarrhea, chest pain, shortness of breath. No other symptoms or modifying factors present at this time. acute back pain difficulty walking weakness HTN HLD CHF hx of Epilepsy HTN hx of dementia admitted to med/surg consult to spin surgery PT/OT as appropriate pain management 07/05/2025 consult Spine surgery. MRI if needed 07/06/2025: pending MRI and evaluation by surgery request PT/OT 07/07/2025: due to new findings on CT, pt needs to discuss with ortho 07/08/2025: pt needs a myelogram per ortho. son would like to take pt to [place] (where he lives) vs back to [facility] 07/09/2025: pending a myelogrma time: >45 minutes in the coordination of care My Orders My Orders Orders - JANEE SCHULTE DO Procedure Category Date Status Time Discharge DISCHARGE 07/12/25 Verified 13:04 Dietary Evaluation Review Comments: Cardiac diet Monitor PO intkes Offer Ensure HP 240ml PO supplements BID if PO intake<50% Expected Outcomes/Goals: maintain wt, Improving nutrition status JANEE SCHULTE DO Jul 12, 2025 13:05
--- NOTE | 2025-07-12 13:05 | DVHDS2 ---
Discharge Summary Date of Admission Jul 04, 2025 at 15:13 Date of Discharge: Jul 12, 2025 Labs/Diagnostic Data: Laboratory Results Test 07/11/25 09:06 07/05/25 06:00 07/04/25 13:08 Prothrombin Time 10.8 sec (9.3-11.8) Prothrombin Time INR 1.02 (0.9-1.15) Activated Partial Thromboplast Time 25.9 SEC (24.5-34.5) White Blood Count 5.0 10^3/uL (4.4-10.8) Red Blood Count 3.87 10^6/uL (4.5-5.90) Hemoglobin 12.2 g/dL (13.5-17.5) Hematocrit 37.0 % (41.0-53.0) Mean Corpuscular Volume 95.6 fL (80.0-100.0) Mean Corpuscular Hemoglobin 31.5 pg (28.0-32.0) Mean Corpuscular Hemoglobin Concent 32.9 g/dL (32.0-36.0) Red Cell Distribution Width 14.9 % (11.8-14.3) Platelet Count 169 10^3/uL (140-450) Mean Platelet Volume 7.2 fL (6.9-10.8) Neutrophils (%) (Auto) 73.0 % (37.0-80.0) Lymphocytes (%) (Auto) 15.3 % (10.0-50.0) Monocytes (%) (Auto) 8.5 % (0.0-12.0) Eosinophils (%) (Auto) 2.4 % (0.0-7.0) Basophils (%) (Auto) 0.8 % (0.0-2.0) Neutrophils # (Auto) 3.7 10 ^3/uL (1.6-8.6) Lymphocytes # (Auto) 0.8 10 ^3/uL (0.4-5.4) Monocytes # (Auto) 0.4 10 ^3/uL (0-1.3) Eosinophils # (Auto) 0.1 10 ^3/uL (0-0.8) Basophils # (Auto) 0 10 ^3/uL (0-0.2) Nucleated Red Blood Cells 0.1 % Sodium Level 142 mmol/L (136-145) Potassium Level 4.6 mmol/L (3.5-5.1) Chloride Level 104 mmol/L (98-107) Carbon Dioxide Level 31 mmol/L (20-31) Anion Gap 7 (5-15) Blood Urea Nitrogen 16 mg/dL (9-23) Creatinine 0.93 mg/dL (0.700-1.30) Glomerular Filtration Rate Calc 81 mL/min (>90) BUN/Creatinine Ratio 17.2 (10.0-20.0) Serum Glucose 87 mg/dL (74-106) Calcium Level 9.1 mg/dL (8.7-10.4) Total Bilirubin 0.7 mg/dL (0.2-1.0) Aspartate Amino Transferase (AST) 17 U/L (13-40) Alanine Aminotransferase (ALT) 11 U/L (7-40) Alkaline Phosphatase 128 U/L (46-116) Total Protein 5.8 g/dL (5.7-8.2) Albumin 3.4 g/dL (3.2-4.8) Urine Color Yellow (Yellow) Urine Clarity Clear (Clear) Urine pH 6.0 (5.0-9.0) Urine Specific [place] 1.028 (1.001-1.035) Urine Protein Trace (Negative) Urine Ketones Negative (Negative) Urine Blood Negative /uL (Negative) Urine Nitrite Negative (Negative) Urine Bilirubin Negative (Negative) Urine Urobilinogen Normal mg/dL (Negative) Urine Leukocyte Esterase Negative /uL (Negative) Urine RBC 34 /hpf (0 - 3) Urine Microscopic WBC 1 /HPF (0-3) Urine Squamous Epithelial Cells Few /hpf (<5) Urine Calcium Oxalate Crystals Few (None Seen) Urine Bacteria None seen /hpf (None Seen) Urine Mucus Few (None Seen) Urine Glucose Normal mg/dL (Normal) Other Laboratory Tests 07/05/25 06:00 Discharge Disposition: [facility] Discharge Instruct/Medications Diet: Cardiac 2g Na,low cholest Activity: No Restrictions, As Tolerated Discharge Statement: "Patient was advised to return to the ER or call 911 if any headaches, dizziness, shortness of breath, chest pain, abdominal pain, bleeding, fevers, or worsening of medical condition. Patient was counseled about treatment plan, medications, possible side effects, patientverbalized understanding. All questions were answered to the best of my ability. This discharge took greater then 30 minutes in planning, reviewing documentation, counseling the patient, and discussing with other team members." ASSESSMENT ASSESSMENT Assessment JANEE SCHULTE DO Jul 12, 2025 13:05
== END 2025-07-12 15:51 | DRG 552 ==
LOC: ER 08:32 → EDBD 08:32 → EDSEX 08:32 → OVERFLOW 15:13 → WEST WING 15:49
PROVIDERS: ADMIT Internal Medicine; ATTEND Internal Medicine
DX: M54.89 Other dorsalgia (principal); M48.54XA Collapsed vertebra, not elsewhere classified, thoracic region, initial encounter for fracture; I50.9 Heart failure, unspecified; I11.0 Hypertensive heart disease with heart failure; G40.909 Epilepsy, unspecified, not intractable, without status epilepticus; F03.90 Unspecified dementia, unspecified severity, without behavioral disturbance, psychotic disturbance, mood disturbance, and anxiety; M48.56XA Collapsed vertebra, not elsewhere classified, lumbar region, initial encounter for fracture; E78.5 Hyperlipidemia, unspecified; M48.061 Spinal stenosis, lumbar region without neurogenic claudication; R26.2 Difficulty in walking, not elsewhere classified; W01.0XXA Fall on same level from slipping, tripping and stumbling without subsequent striking against object, initial encounter
CPT/HCPCS: 36415; 72070; 72100; 72128; 72131; 80048; 80053; 81001; 85025; 85610; 85730; 87081; 96374; 96375; 97110; 97163; 97530; 99291; G0378; J1885; J2405